=== PATIENT | male | born 1980 | race Caucasian/White ===

== ENCOUNTER 2016-05-29 09:27 | Emergency (ER) | payer MEDICAID ==
[2016-05-29 09:33] VITALS: RESP 16; TEMP 97.2
--- NOTE | 2016-05-29 09:43 | EDPHY ---
H & P Time Seen by Provider: 05/29/16 09:43 HPI/ROS: CHIEF COMPLAINT: Chest pain HISTORY OF PRESENT ILLNESS: This 35-year-old man is homeless and has been diagnosed with 3 previous pulmonary embolisms last 1 9 months ago in [facility]. He has been out of his Xarelto for at least 1 month and presents today with 1 day of right-sided chest pain which is mild to moderate and worse with movement or taking a deep breath. It does not radiate. It is not associated with cough or fever or chills or leg symptoms. No recent fall injury or trauma. REVIEW OF SYSTEMS: Eye: no change in vision ENT: no sore throat Cardiac: HPI Pulmonary: no cough or SOB Abdomen: no vomiting, diarrhea, abdominal pain Musculoskeletal: no back pain Skin: no rash Neuro: no headache Constitutional: no fever : no urinary symptoms A comprehensive 10 point review of systems is otherwise negative aside from elements mentioned in the history of present illness. PAST MEDICAL HISTORY: Pulmonary embolism as noted above. Nephrotic syndrome. Social history: Smoker, homeless, moved here from [place]. General Appearance: Alert and conversant, cooperative. Eyes: No scleral icterus. ENT, Mouth: Normal mucous membranes. Respiratory: Normal respiratory effort, breath sounds equal, lungs are clear to auscultation. Cardiovascular: Regular rate and rhythm. Gastrointestinal: Abdomen is soft and non tender. Neurological: Alert and oriented x3. Normally conversant. Face symmetric, normal movement and sensation in all extremities. Skin: Warm and dry, no rashes. Musculoskeletal: No peripheral edema and no joint swelling. Psychiatric: Not agitated. Emergency Department course/MDM: Plan for i-STAT, CT chest, case management to arrange ongoing anticoagulation and outpatient primary care follow-up. 1145: Results discussed in detail with the patient. Case management has set him up with oral Xarelto and primary care follow-up. Patient tells me he was told he needs to be on chronic lifelong anticoagulation. We discussed potential harm the including unintended bleeding, and potential benefit; and Xarelto was consented. Smoking Status: Current every day smoker Constitutional: Initial Vital Signs Temperature (C) 36.2 C 05/29/16 09:30 Heart Rate 84 05/29/16 09:30 Respiratory Rate 16 05/29/16 09:30 Blood Pressure 143/100 H 05/29/16 09:30 O2 Sat (%) 97 05/29/16 09:30 O2 Delivery Mode Room Air Allergies/Adverse Reactions: No Known Allergies Allergy (Unverified 05/29/16 09:28) Home Medications: Medication Instructions Recorded Adderall 10 MG (*) 05/29/16 Lasix 05/29/16 Lisinopril 05/29/16 Valium 05/29/16 Medical Decision Making - Diagnostics EKG Interpretation: 12-lead EKG interpreted by me; official reading is in trace master. My interpretation is [] sinus rhythm, no acute ischemic changes, normal. Rate 74. Imaging: CT angio chest negative per Isuani for PE or other abnl; reviewed personally. Differential Diagnosis: Differential diagnosis considered for chest pain including but not limited to myocardial ischemia, aortic dissection, pericarditis, pulmonary embolus, chest wall pain, pleural inflammation and pulmonary infectious causes. - Data Points Laboratory Results: Laboratory Results 05/29/16 09:45 05/29/16 09:45 05/29/16 05/29/16 09:46 09:45 WBC 12.62 H 10^3/uL (3.80-9.50) RBC 5.04 10^6/uL (4.40-6.38) Hgb 15.8 g/dL (13.7-17.5) POC Hgb 15.6 gm/dL (14.5-17.3) Hct 46.7 % (40.0-51.0) POC Hct 46 % (42.8-50.6) MCV 92.7 fL (81.5-99.8) MCH 31.3 pg (27.9-34.1) MCHC 33.8 g/dL (32.4-36.7) RDW 12.3 % (11.5-15.2) Plt Count 351 10^3/uL (150-400) MPV 9.7 fL (8.7-11.7) Neut % (Auto) Not Reported Lymph % (Auto) Not Reported [place] % (Auto) Not Reported Eos % (Auto) Not Reported Baso % (Auto) Not Reported Nucleat RBC Rel Count 0.0 % (0.0-0.2) Absolute Neuts (auto) Not Reported Absolute Lymphs (auto) Not Reported Absolute Monos (auto) Not Reported Absolute Eos (auto) Not Reported Absolute Basos (auto) Not Reported Absolute Nucleated RBC 0.00 10^3/uL (0-0.01) Immature Gran % Not Reported Seg Neutrophils % 55 % Band Neutrophils % 1 % Lymphocytes % 36 % Monocytes % 4 % Eosinophils % 4 % Immature Gran # Not Reported Absolute Seg Neuts 6.94 H 10^/uL (1.70-6.50) Absolute Band Neuts 0.13 10^3/uL (0.00-0.70) Absolute Lymphocytes 4.54 H 10^3/uL (1.00-3.00) Absolute Monocytes 0.50 10^3/uL (0.30-0.80) Absolute Eosinophils 0.50 H 10^3/uL (0.03-0.40) RBC/WBC/PLT Morphology NORMAL (NORMAL) Atypical Lymphocytes 1+ H Platelet Estimate ADEQUATE (ADEQ) POC Sodium 139 mEq/L (134-144) Sodium 136 mEq/L (134-144) POC Potassium 5.0 mEq/L (3.3-5.0) Potassium 5.3 H mEq/L (3.5-5.2) POC Chloride 105 mEq/L (96-108) Chloride 107 mEq/L (97-110) Carbon Dioxide 25 mEq/l (22-31) Anion Gap 4 mEq/L (8-16) POC BUN 33 H mg/dL (7-23) BUN 31 H mg/dL (7-23) Creatinine 1.1 mg/dL (0.7-1.3) POC Creatinine 1.1 mg/dL (0.8-1.5) Estimated GFR > 60 Glucose 89 mg/dL (70-100) POC Glucose 89 mg/dL (70-100) Calcium 8.7 mg/dL (8.5-10.4) Medications Given: Discontinued Medications Sodium Chloride (Ns) 1,000 mls @ 0 mls/hr IV ONCE ONE PRN Reason: Wide Open Stop: 05/29/16 09:55 Last Admin: 05/29/16 10:17 Dose: 1,000 mls Point of Care Test Results: 05/29/16 09:46 POC Sodium 139 POC Potassium 5.0 POC Chloride 105 POC BUN 33 H POC Creatinine 1.1 POC Glucose 89 Departure - Departure Disposition: Home, Routine, Self-Care Clinical Impression: Chest pain Qualifiers: Chest pain type: unspecified Qualifier Code: (R07.9) Chest pain, unspecified Condition: Good Instructions: Chest Pain (ED) Additional Instructions: Follow-up with [facility] at [address] ([phone]). Your scheduled appointment is at 2:40pm today. Please ensure you activate the Xarelto free 30-day trial that was provided to you. Call [phone]. After your card is activated, take the prescription and the card to a pharmacy of your choice to have it filled. Referrals: NONE *PRIMARY CARE P,. [Primary Care Provider] - As per Instructions [facility] [Outside] - As per Instructions
--- NOTE | 2016-05-29 09:45 | CPEKG ---
Heart Rate: 74 RR Interval: 811 P-R Interval: 156 QRSD Interval: 84 QT Interval: 364 QTC Interval: 404 P [place]: 61 QRS [place]: 14 T Wave [place]: 37 EKG Severity - NORMAL ECG - EKG Impression: SINUS RHYTHM Electronically Signed By: Dino Juarez 29-May-2016 09:59:47
[2016-05-29] MEDS ORDERED: NS 1,000 ML IV ONE (09:54)
[2016-05-29 10:03] LABS: ADD DIFF? YES; ADD MORPH? NO; ADD SCAN? NO; ATYPICAL LYMPHOCYTE FLAG 30 (0-99); FRAGMENT RBC FLAG 0 (0-99); HEMATOCRIT 46.7 % (40.0-51.0); HEMOGLOBIN 15.8 g/dL (13.7-17.5); LEFT SHIFT FLG 60 (0-99); LIPEMIA HEMOLYSIS FLAG 90 (0-99); MEAN CELL HEMOGLOBIN 31.3 pg (27.9-34.1); MEAN CELL HEMOGLOBIN CONCENTR. 33.8 g/dL (32.4-36.7); MEAN CELL VOLUME 92.7 fL (81.5-99.8); MEAN PLATELET VOLUME 9.7 fL (8.7-11.7); PLATELET CLUMPS FLAG 10 (0-99); PLATELET COUNT 351 10^3/uL (150-400); RED BLOOD CELL COUNT 5.04 10^6/uL (4.40-6.38); RED CELL DISTRIBUTION WIDTH 12.3 % (11.5-15.2)
[2016-05-29] MEDS ORDERED: IOPAMIDOL (ISOVUE 370) 100 ML BTL IV ONE (10:07)
[2016-05-29 10:17] LABS: ANION GAP 4 mEq/L (8-16); CALCIUM 8.7 mg/dL (8.5-10.4); CARBON DIOXIDE 25 mEq/l (22-31); CHLORIDE 107 mEq/L (97-110); CREATININE 1.1 mg/dL (0.7-1.3); GLOMERULAR FILTRATION RATE > 60; GLUCOSE 89 mg/dL (70-100); POTASSIUM 5.3 mEq/L (3.5-5.2); SODIUM 136 mEq/L (134-144)
[2016-05-29 10:41] LABS: PLATELET ESTIMATE ADEQUATE (ADEQ)
--- NOTE | 2016-05-29 11:03 | CT ---
CT Chest Pulmonary Angiogram With Contrast Enhancement and Multiplanar Reconstructions at 1018 hours History: Right-sided chest pain, previous pulmonary emboli. COMPARISON: None. Technique: 1.25 mm axial multidetector helical CT angiogram imaging was performed through the chest w hile 90 mL Isovue-370 were injected intravenously without complication. The images were then transfe rred to an independent workstation where multiplanar and three-dimensional reconstructions were perfo rmed by the interpreting physician and reviewed at multiple windows. Dose reduction techniques were u tilized. CT Pulmonary Angiogram Findings: No CT evidence of definite pulmonary thromboemboli. No evidence of aortic dissection. Heart is normal in size. CT Chest Findings: No pneumonia, pleural effusion or pneumothorax. Linear scarring in the right lower lobe. No suspicious nodules or significant adenopathy. No destructive osseous lesions. Impression: 1. No definite pulmonary thromboemboli. 2. Linear scar in the right lower lobe. 3. No acute pulmonary disease. 4. No aortic dissection. Findings and recommendations discussed with Emergency Department physician, Dr. Dino Juarez at [address], today. Final report concurs with initial preliminary interpretation.
[2016-05-29 13:09] VITALS: BP 146/97; PULSE 79; O2SAT 95
== END 2016-05-29 13:07 | disposition home or self-care (01) ==
DX: R07.9 Chest pain, unspecified (principal); F17.200 Nicotine dependence, unspecified, uncomplicated
CPT/HCPCS: 82947-QW; Q9967

== ENCOUNTER 2016-07-16 16:01 | Emergency (ER) | payer MEDICAID ==
[2016-07-16 16:07] VITALS: BP 151/83; PULSE 98; RESP 17; TEMP 98.2; O2SAT 96
--- NOTE | 2016-07-16 17:18 | EDPHY ---
H & P Time Seen by Provider: 07/16/16 17:02 HPI/ROS: CHIEF COMPLAINT: right great toe pain HISTORY OF PRESENT ILLNESS: 35-year-old male presents emergency department complaining of right great toe pain for the past few days. Patient denies trauma. No fevers or chills, no numbness or tingling to this toe, no other complaints. Tetanus is up-to-date. Smoking Status: Current every day smoker Physical Exam: GEN: Awake, alert, oriented, no acute distress RESP: nl resp effort MSK: Right great toe with no tenderness at MTP joint, no erythema, patient paronychia to medial toenail tenderness to skin around the nail and tip of toe. No break in skin, sensation intact to light touch, cap refill less than 2 seconds Constitutional: Initial Vital Signs Temperature (C) 36.8 C 07/16/16 16:05 Heart Rate 98 07/16/16 16:05 Respiratory Rate 17 07/16/16 16:05 Blood Pressure 151/83 H 07/16/16 16:05 O2 Sat (%) 96 07/16/16 16:05 Allergies/Adverse Reactions: No Known Allergies Allergy (Unverified 05/29/16 09:28) Home Medications: Medication Instructions Recorded Adderall 10 MG (*) 05/29/16 Lasix 05/29/16 Lisinopril 05/29/16 Valium 05/29/16 MDM/Departure - MDM Procedures: Procedure: Incision and Drainage paronychia. The patient's abscess was located on the right great toe. Risks, benefits, alternatives discussed with the patient and consent obtained. The toe was anesthetized with a digital block using 5 mL of 0.5% bupivacaine mixed with 1% lidocaine without epinephrine. The area was prepped and draped in sterile fashion. The abscess was incised with a #11 blade and purulent drainage was expressed. The patient tolerated the procedure well. The procedure was performed by myself. - Depart Disposition: Home, Routine, Self-Care Clinical Impression: Paronychia of great toe, right Condition: Good Instructions: Paronychia (ED) Additional Instructions: Soak your foot in warm water 5 times a day for 10 minutes. Elevate. Take 600 mg of ibuprofen every 8 hours with food for 3-5 days. Follow-up with your primary care doctor for symptoms that are not improving, return to the emergency department for worsening symptoms, fevers, any other questions or concerns. Referrals: ABDOULAYE OSWALD [Other] - As per Instructions
== END 2016-07-16 18:23 | disposition home or self-care (01) ==
PROC: 0H9MXZZ Drainage of Right Foot Skin, External Approach (ICD-10-PCS; principal; 2016-07-16)
DX: L03.031 Cellulitis of right toe (principal); F17.200 Nicotine dependence, unspecified, uncomplicated

== ENCOUNTER 2017-01-04 09:15 | Emergency (ER) | payer MEDICAID ==
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
[2017-01-04] MEDS ORDERED: HYDROmorphONE/DILAUDID 1 MG/ML SYR IVP ONE (09:23)
[2017-01-04] MEDS ORDERED: ONDANSETRON 4 MG/2 ML VIAL IVP ONE (09:23)
[2017-01-04] MEDS ORDERED: LIDOCAINE 2% JELLY 20 ML (UROJECT) UR ONE (10:51)
[2017-01-04] MEDS ORDERED: LIDOCAINE 2% JELLY 20 ML (UROJECT) ONE (10:52)
[2017-01-04 11:37] VITALS: BP 139/80; PULSE 85; RESP 16; TEMP 97.5; O2SAT 95
== END 2017-01-04 11:37 | disposition home or self-care (01) ==
LOC: EDUNIT#
DX: S20.311A Abrasion of right front wall of thorax, initial encounter (principal); S30.811A Abrasion of abdominal wall, initial encounter; S30.810A Abrasion of lower back and pelvis, initial encounter; V13.9XXA Unspecified pedal cyclist injured in collision with car, pick-up truck or van in traffic accident, initial encounter; Y92.410 Unspecified street and highway as the place of occurrence of the external cause
CPT/HCPCS: 82947-QW; 96374; J1170; J2405; L3908

== ENCOUNTER 2017-01-30 00:36 | Emergency (ER) | payer MEDICAID ==
[2017-01-30] MEDS ORDERED: NS 1,000 ML IV ONE ×2 (00:38→01:31)
--- NOTE | 2017-01-30 00:41 | EDPHY ---
H & P HPI/ROS: HPI CHIEF COMPLAINT: Intoxication, additionally drank a bottle of Robitussin which has Tylenol in it. He states he drank this 3 hours ago HISTORY OF PRESENT ILLNESS: This patient 36-year-old male, he is homeless, he presents emergency room by EMS after was found [place] the [place] unable to walk. Appeared intoxicated. States that he drank alcohol this evening. Additionally he states that he drank an entire bottle of Robitussin. He denies any other comma ingestions. He does take Valium he states for anxiety and attention deficit hyperactivity disorder medicine Adderall. Upon arrival to the emergency room the patient is somnolent. Intoxicated. Denies any complaints. Past Medical History: Anxiety, attention deficit hyperactivity disorder Past Surgical History: No recent surgery Social History: Alcohol use, homeless Family History: Noncontributory ROS REVIEW OF SYSTEMS: Limited due to patient's mental state. Intoxication. Exam Constitutional triage nursing summary reviewed, vital signs reviewed, awake/ alert. Eyes normal conjunctivae and sclera, EOMI, PERRLA. HENT normal inspection, atraumatic, moist mucus membranes, no epistaxis, neck supple/ no meningismus, no raccoon eyes. Respiratory clear to auscultation bilaterally, normal breath sounds, no respiratory distress, no wheezing. Cardiovascular rate normal, regular rhythm, no murmur, no edema, distal pulses normal. Gastrointestinal soft, non-tender, no rebound, no guarding, normal bowel sounds, no distension, no pulsatile mass. Genitourinary no CVA tenderness. Musculoskeletal no midline vertebral tenderness, full range of motion, no calf swelling, no tenderness of extremities, no meningismus, good pulses, neurovascularly intact. Skin pink, warm, & dry, no rash, skin atraumatic. Neurologic somnolent, intoxicated, smells of alcohol, horizontal beating nystagmus, ataxic gait Psychiatric normal mood/affect. Heme/Lymph/Immune no lymphadenopathy. Differential Diagnosis: Includes but is not limited to in a particular order acute alcohol intoxication, dehydration, electrolyte disturbance, Tylenol overdose, polysubstance abuse Medical Decision Making: Plan for this patient IV establishment with blood draw , poison Control consult, check salicylate and acetaminophen level, alcohol level. Gentle IV hydration. Re-evaluation: EKG interpretation by me on record in [employer] system. Impression time of EKG 1:12 a.m., sinus rhythm rate of 75 no prolonged intervals. No acute ischemia. Unremarkable EKG. 0552AM: This patient repeat see midlevel unremarkable. Patient ambulated well to the bathroom without difficulty. Drug screen positive for multiple drugs. He is agreeable discharge. Is not appear acutely intoxicated this time., cooperative. Not psychotic. Ambulatory with a stable gait. Source: Patient, EMS - Personal History Tetanus Vaccine Date: 2015 - Medical/Surgical History Hx Asthma: No Hx Chronic Respiratory Disease: No Hx Diabetes: No Hx Cardiac Disease: No Hx Renal Disease: Yes Hx Cirrhosis: No Hx Alcoholism: No Hx HIV/AIDS: No Hx Splenectomy or Spleen Trauma: No Other PMH: nephrotic syndrome, anxiety and pulmonary embolism with DVT years ago. Pt currently on BASA. - Social History Smoking Status: Current every day smoker Constitutional: Initial Vital Signs Temperature (C) 36.8 C 01/30/17 00:44 Heart Rate 79 01/30/17 00:44 Respiratory Rate 18 01/30/17 00:44 Blood Pressure 133/81 H 01/30/17 00:44 O2 Sat (%) 95 01/30/17 00:44 O2 Delivery Mode Room Air Allergies/Adverse Reactions: No Known Allergies Allergy (Unverified 05/29/16 09:28) Home Medications: Medication Instructions Recorded Adderall 10 MG (*) 05/29/16 Lasix 05/29/16 Lisinopril 05/29/16 Valium 05/29/16 Medical Decision Making - Data Points Laboratory Results: Laboratory Results 01/30/17 00:40 01/30/17 00:40 01/30/17 01/30/17 01/30/17 05:05 05:03 00:40 WBC RBC Hgb Hct MCV MCH MCHC RDW Plt Count MPV Neut % (Auto) Lymph % (Auto) [place] % (Auto) Eos % (Auto) Baso % (Auto) Nucleat RBC Rel Count Absolute Neuts (auto) Absolute Lymphs (auto) Absolute Monos (auto) Absolute Eos (auto) Absolute Basos (auto) Absolute Nucleated RBC Immature Gran % Immature Gran # Sodium Potassium Chloride Carbon Dioxide Anion Gap BUN Creatinine Estimated GFR Glucose Calcium Total Bilirubin 0.4 mg/dL mg/dL (0.1-1.4) Conjugated Bilirubin 0.3 mg/dL mg/dL (0.0-0.5) Unconjugated Bilirubin 0.1 mg/dL mg/dL (0.0-1.1) AST 34 IU/L IU/L (17-59) ALT 40 IU/L IU/L (21-72) Alkaline Phosphatase 76 IU/L IU/L (38-126) Total Protein 5.6 g/dL L g/dL (6.3-8.2) Albumin 3.2 g/dL L g/dL (3.5-5.0) Salicylates Urine Opiates Screen NEGATIVE (NEGATIVE) Acetaminophen < 10 mcg/mL L mcg/mL (10-30) Urine Barbiturates NEGATIVE (NEGATIVE) Ur Phencyclidine Scrn NEGATIVE (NEGATIVE) Ur Amphetamine Screen NON-NEGATIVE H (NEGATIVE) U Benzodiazepines Scrn NON-NEGATIVE H (NEGATIVE) Urine Cocaine Screen NON-NEGATIVE H (NEGATIVE) U Marijuana (THC) Screen NON-NEGATIVE H (NEGATIVE) Ethyl Alcohol 01/30/17 01/30/17 00:40 00:40 WBC 6.56 10^3/uL 10^3/uL (3.80-9.50) RBC 4.08 10^6/uL L 10^6/uL (4.40-6.38) Hgb 12.7 g/dL L g/dL (13.7-17.5) Hct 38.5 % L % (40.0-51.0) MCV 94.4 fL fL (81.5-99.8) MCH 31.1 pg pg (27.9-34.1) MCHC 33.0 g/dL g/dL (32.4-36.7) RDW 12.5 % % (11.5-15.2) Plt Count 236 10^3/uL 10^3/uL (150-400) MPV 9.8 fL fL (8.7-11.7) Neut % (Auto) 39.6 % % (39.3-74.2) Lymph % (Auto) 45.7 % H % (15.0-45.0) [place] % (Auto) 9.0 % % (4.5-13.0) Eos % (Auto) 3.7 % % (0.6-7.6) Baso % (Auto) 0.9 % % (0.3-1.7) Nucleat RBC Rel Count 0.0 % % (0.0-0.2) Absolute Neuts (auto) 2.60 10^3/uL 10^3/uL (1.70-6.50) Absolute Lymphs (auto) 3.00 10^3/uL 10^3/uL (1.00-3.00) Absolute Monos (auto) 0.59 10^3/uL 10^3/uL (0.30-0.80) Absolute Eos (auto) 0.24 10^3/uL 10^3/uL (0.03-0.40) Absolute Basos (auto) 0.06 10^3/uL 10^3/uL (0.02-0.10) Absolute Nucleated RBC 0.00 10^3/uL 10^3/uL (0-0.01) Immature Gran % 1.1 % % (0.0-1.1) Immature Gran # 0.07 10^3/uL 10^3/uL (0.00-0.10) Sodium 142 mEq/L mEq/L (134-144) Potassium 4.6 mEq/L mEq/L (3.5-5.2) Chloride 111 mEq/L H mEq/L (97-110) Carbon Dioxide 24 mEq/l mEq/l (22-31) Anion Gap 7 mEq/L L mEq/L (8-16) BUN 36 mg/dL H mg/dL (7-23) Creatinine 1.2 mg/dL mg/dL (0.7-1.3) Estimated GFR > 60 Glucose 96 mg/dL mg/dL (70-100) Calcium 9.1 mg/dL mg/dL (8.5-10.4) Total Bilirubin Cancelled Conjugated Bilirubin Cancelled Unconjugated Bilirubin Cancelled AST Cancelled ALT Cancelled Alkaline Phosphatase Cancelled Total Protein Cancelled Albumin Cancelled Salicylates < 1.0 mg/dL L mg/dL (2.0-20.0) Urine Opiates Screen Acetaminophen < 10 mcg/mL L mcg/mL (10-30) Urine Barbiturates Ur Phencyclidine Scrn Ur Amphetamine Screen U Benzodiazepines Scrn Urine Cocaine Screen U Marijuana (THC) Screen Ethyl Alcohol < 10 mg/dL mg/dL (0-10) Medications Given: Discontinued Medications Sodium Chloride (Ns) 1,000 mls @ 0 mls/hr IV ONCE ONE PRN Reason: Wide Open Stop: 01/30/17 00:39 Last Admin: 01/30/17 00:49 Dose: 1,000 mls Sodium Chloride (Ns) 1,000 mls @ 0 mls/hr IV ONCE ONE PRN Reason: Wide Open Stop: 01/30/17 01:32 Last Admin: 01/30/17 01:43 Dose: 1,000 mls Departure - Departure Disposition: Home, Routine, Self-Care Clinical Impression: Polysubstance abuse Condition: Good Instructions: Polysubstance Abuse (ED) Referrals: NONE *PRIMARY CARE P,. [Primary Care Provider] - As per Instructions
[2017-01-30 00:46] VITALS: TEMP 98.2
[2017-01-30 00:58] LABS: % IMMATURE GRANULYOCYTES 1.1 % (0.0-1.1); ABSOLUTE IMMATURE GRANULOCYTES 0.07 10^3/uL (0.00-0.10); ADD DIFF? NO; ADD MORPH? NO; ADD SCAN? NO; ATYPICAL LYMPHOCYTE FLAG 40 (0-99); FRAGMENT RBC FLAG 0 (0-99); HEMATOCRIT 38.5 % (40.0-51.0); HEMOGLOBIN 12.7 g/dL (13.7-17.5); LEFT SHIFT FLG 10 (0-99); LIPEMIA HEMOLYSIS FLAG 80 (0-99); MEAN CELL HEMOGLOBIN 31.1 pg (27.9-34.1); MEAN CELL VOLUME 94.4 fL (81.5-99.8); MEAN PLATELET VOLUME 9.8 fL (8.7-11.7); PLATELET CLUMPS FLAG 0 (0-99); PLATELET COUNT 236 10^3/uL (150-400); RED BLOOD CELL COUNT 4.08 10^6/uL (4.40-6.38); RED CELL DISTRIBUTION WIDTH 12.5 % (11.5-15.2)
[2017-01-30 01:04] LABS: ANION GAP 7 mEq/L (8-16); CALCIUM 9.1 mg/dL (8.5-10.4); CARBON DIOXIDE 24 mEq/l (22-31); CHLORIDE 111 mEq/L (97-110); CREATININE 1.2 mg/dL (0.7-1.3); ETHANOL SERUM < 10 mg/dL (0-10); GLOMERULAR FILTRATION RATE > 60; GLUCOSE 96 mg/dL (70-100); POTASSIUM 4.6 mEq/L (3.5-5.2); SALICYLATE < 1.0 mg/dL (2.0-20.0); SODIUM 142 mEq/L (134-144)
--- NOTE | 2017-01-30 01:14 | CPEKG ---
Heart Rate: 75 RR Interval: 800 P-R Interval: 188 QRSD Interval: 98 QT Interval: 416 QTC Interval: 465 P [place]: 74 QRS [place]: 36 T Wave [place]: 36 EKG Severity - NORMAL ECG - EKG Impression: SINUS RHYTHM Electronically Signed By: Bull Block 30-Jan-2017 07:35:46
[2017-01-30 01:43] LABS: ALBUMIN 3.2 g/dL (3.5-5.0); BILIRUBIN,TOTAL 0.4 mg/dL (0.1-1.4); BILIRUBIN-CONJUGATED 0.3 mg/dL (0.0-0.5); BILIRUBIN-UNCONJUGATED 0.1 mg/dL (0.0-1.1); TOTAL PROTEIN 5.6 g/dL (6.3-8.2)
[2017-01-30 04:59] VITALS: RESP 16
[2017-01-30 06:08] VITALS: BP 109/74; PULSE 69; O2SAT 100
--- NOTE | 2017-01-30 09:23 | CPEKG ---
Heart Rate: 67 RR Interval: 896 P-R Interval: 184 QRSD Interval: 102 QT Interval: 420 QTC Interval: 444 P [place]: 72 QRS [place]: 41 T Wave [place]: 31 EKG Severity - NORMAL ECG - EKG Impression: SINUS RHYTHM Electronically Signed By: Korina Hernandez 30-Jan-2017 20:06:38
== END 2017-01-30 06:08 | disposition home or self-care (01) ==
LOC: EDBD → EDUNIT#
DX: F19.10 Other psychoactive substance abuse, uncomplicated (principal); F17.200 Nicotine dependence, unspecified, uncomplicated
CPT/HCPCS: 80305; G0480

== ENCOUNTER 2017-03-20 15:56 | Emergency (ER) | payer MEDICAID ==
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
[2017-03-20 16:05] VITALS: TEMP 97.5
[2017-03-20] MEDS ORDERED: IBUPROFEN 600 MG TAB PO ONE (16:12)
[2017-03-20] MEDS ORDERED: HYDROCODONE/APAP 5/325 TAB PO ONE (16:17)
[2017-03-20] MEDS ORDERED: oxyCODONE IR 5 MG TAB PO ONE (17:06)
[2017-03-20] MEDS ORDERED: OXYCODONE/APAP 5/325MG PREPACK#4 BTL TAKEHOME ONE (17:33)
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
[2017-03-20 18:00] VITALS: BP 148/87; PULSE 84; RESP 16; O2SAT 97
== END 2017-03-20 18:00 | disposition home or self-care (01) ==
LOC: EDUNIT#
DX: S93.491A Sprain of other ligament of right ankle, initial encounter (principal); S82.891A Other fracture of right lower leg, initial encounter for closed fracture; X58.XXXA Exposure to other specified factors, initial encounter; Y99.8 Other external cause status; Y93.89 Activity, other specified
CPT/HCPCS: L4386

== ENCOUNTER 2018-02-08 05:11 | Emergency (ER) | payer MEDICAID ==
[2018-02-08] MEDS ORDERED: NS 1,000 ML IV ONE ×2 (05:23→06:12)
--- NOTE | 2018-02-08 05:25 | EDPHY ---
H & P Time Seen by Provider: 02/08/18 05:24 HPI/ROS: HPI CHIEF COMPLAINT: Joint pain. Pain all over. HISTORY OF PRESENT ILLNESS: 37-year-old male presents emergency room by EMS from the bus stop. Patient states he resides in [place] was visiting a friend here in [place]. Was due to take the early bus back to [place]. However he states for the past 4-5 hours he has had pain in his bilateral feet, ankles, right wrist, right elbow and left elbow. Patient states he has pain in multiple joint areas. No fever. Patient states he has a history of gout. Also he states that sometimes he retains fluid when he eats too much salt so he intermittently takes Lasix. Additionally patient reports he took 2 Lasix tab today. Additionally also reports he smoked methamphetamine over the last 24-48 hours. Of note the patient did receive 100 mcg IV fentanyl. Patient denies any chest pain or shortness of breath or pleuritic pain this evening. No fever. No vomiting. Main complaint is multiple joint pain. Past Medical History: Past medical history significant for methamphetamine abuse, gout, kidney failure, hypertension, unsure the cause of his kidney failure in the past, additionally has a history of PE 2015. Unsure of the cause. No products syndrome. Attention deficit hyperactivity disorder and anxiety. Past Surgical History: No significant surgery. Social History: Methamphetamine use, history of alcohol abuse. History of homelessness. States he lives in apartment in [place]. Family History: Noncontributory ROS REVIEW OF SYSTEMS: 10 Systems were reviewed and negative with the exception of the elements mentioned in the history of present illness. Exam Constitutional triage nursing summary reviewed, vital signs reviewed, awake/ alert. Eyes normal conjunctivae and sclera, EOMI, PERRLA. HENT normal inspection, atraumatic, moist mucus membranes, no epistaxis, neck supple/ no meningismus, no raccoon eyes. Respiratory clear to auscultation bilaterally, normal breath sounds, no respiratory distress, no wheezing. Cardiovascular rate normal, regular rhythm, no murmur, no edema, distal pulses normal. Gastrointestinal soft, non-tender, no rebound, no guarding, normal bowel sounds, no distension, no pulsatile mass. Genitourinary no CVA tenderness. Musculoskeletal I evaluated all his joints including wrists, elbows, ankles and feet. There does appear to be some tophi over both elbows consistent with gout or possible gout. However no evidence signs of inflammation or redness or infection. Full range of motion of all his joints. His limbs are neurovascular intact good distal pulses, good cap refill, warm extremities without any rash. No significant swelling noted. no midline vertebral tenderness, full range of motion, no calf swelling, no tenderness of extremities, no meningismus, good pulses, neurovascularly intact. Skin pink, warm, & dry, no rash, skin atraumatic. Neurologic awake, alert and oriented x 3, AAOx3, moves all 4 extremities equally, motor intact, sensory intact, CN II-XII intact, normal cerebellar, normal vision, normal speech. Psychiatric normal mood/affect. Heme/Lymph/Immune no lymphadenopathy. Differential Diagnosis: Includes but is not limited to in a particular order gout, methamphetamine abuse, electrolyte disturbance from taking Lasix, arthralgia polyarthralgia process, no evidence of septic joint on exam. Medical Decision Making: Plan for this patient will obtain basic blood work, check CK, drug screen, electrolytes. Will gently hydrate him. Does feel better after 100 mcg IV fentanyl given by EMS. Will check basic blood work including kidney function. Will re-evaluate. Here in emergency room this patient appears well nontoxic has stable vital signs. No active infection visible on exam. Has multiple joints with pain. Possibly due to methamphetamine abuse and dehydration or possible due to electrolyte disturbance or possible due to gout. Re-evaluation: 0649: Patient re-evaluated. I have declined to give him any narcotics. He has asked repeatedly for narcotics here in the emergency room. Additionally I cannot give him any Toradol or high-dose NSAIDs due to his elevated creatinine. He has received 2 L of fluid here. His creatinine is 1.6. I do recommend he drinks lots of fluids and stays well hydrated and follows up with his primary care doctor to get his repeat creatinine. Additionally he has been doing methamphetamine. I do recommend he refrain from doing methamphetamine as this may be contributing to his presentation today. you should stay well-hydrated. Refrain from drug use. Source: Patient, EMS - Personal History Tetanus Vaccine Date: 2015 - Medical/Surgical History Hx Asthma: No Hx Chronic Respiratory Disease: No Hx Diabetes: No Hx Cardiac Disease: No Hx Renal Disease: Yes Hx Cirrhosis: No Hx Alcoholism: No Hx HIV/AIDS: No Hx Splenectomy or Spleen Trauma: No Other PMH: nephrotic syndrome, anxiety and pulmonary embolism with DVT years ago. Pt currently on BASA. - Social History Smoking Status: Current every day smoker Constitutional: Initial Vital Signs Temperature (C) 36.4 C 02/08/18 05:42 Heart Rate 79 02/08/18 05:42 Respiratory Rate 18 02/08/18 05:42 Blood Pressure 142/100 H 02/08/18 05:42 O2 Sat (%) 100 02/08/18 05:42 O2 Delivery Mode Room Air Allergies/Adverse Reactions: No Known Allergies Allergy (Unverified 05/29/16 09:28) Home Medications: Medication Instructions Recorded Adderall 10 MG (*) 05/29/16 Lasix 05/29/16 Lisinopril 05/29/16 Valium 05/29/16 Medical Decision Making - Data Points Laboratory Results: Laboratory Results 02/08/18 05:30 02/08/18 05:30 02/08/18 02/08/18 05:30 05:30 WBC 11.67 10^3/uL H 10^3/uL (3.80-9.50) RBC 4.20 10^6/uL L 10^6/uL (4.40-6.38) Hgb 12.8 g/dL L g/dL (13.7-17.5) Hct 37.3 % L % (40.0-51.0) MCV 88.8 fL fL (81.5-99.8) MCH 30.5 pg pg (27.9-34.1) MCHC 34.3 g/dL g/dL (32.4-36.7) RDW 12.1 % % (11.5-15.2) Plt Count 253 10^3/uL 10^3/uL (150-400) MPV 10.2 fL fL (8.7-11.7) Neut % (Auto) 77.7 % H % (39.3-74.2) Lymph % (Auto) 14.9 % L % (15.0-45.0) [place] % (Auto) 4.5 % % (4.5-13.0) Eos % (Auto) 2.3 % % (0.6-7.6) Baso % (Auto) 0.3 % % (0.3-1.7) Nucleat RBC Rel Count 0.0 % % (0.0-0.2) Absolute Neuts (auto) 9.06 10^3/uL H 10^3/uL (1.70-6.50) Absolute Lymphs (auto) 1.74 10^3/uL 10^3/uL (1.00-3.00) Absolute Monos (auto) 0.53 10^3/uL 10^3/uL (0.30-0.80) Absolute Eos (auto) 0.27 10^3/uL 10^3/uL (0.03-0.40) Absolute Basos (auto) 0.04 10^3/uL 10^3/uL (0.02-0.10) Absolute Nucleated RBC 0.00 10^3/uL 10^3/uL (0-0.01) Immature Gran % 0.3 % % (0.0-1.1) Immature Gran # 0.03 10^3/uL 10^3/uL (0.00-0.10) Sodium 140 mEq/L mEq/L (135-145) Potassium 4.1 mEq/L mEq/L (3.3-5.0) Chloride 108 mEq/L mEq/L (97-110) Carbon Dioxide 23 mEq/l mEq/l (22-31) Anion Gap 9 mEq/L mEq/L (8-16) BUN 35 mg/dL H mg/dL (7-23) Creatinine 1.6 mg/dL H mg/dL (0.7-1.3) Estimated GFR 49 Glucose 132 mg/dL H mg/dL (70-100) Calcium 8.9 mg/dL mg/dL (8.5-10.4) Total Bilirubin 0.1 mg/dL mg/dL (0.1-1.4) Conjugated Bilirubin 0.0 mg/dL mg/dL (0.0-0.5) Unconjugated Bilirubin 0.1 mg/dL mg/dL (0.0-1.1) AST 25 IU/L IU/L (17-59) ALT 33 IU/L IU/L (21-72) Alkaline Phosphatase 67 IU/L IU/L (38-126) Creatine Kinase 169 IU/L IU/L (0-224) Total Protein 5.4 g/dL L g/dL (6.3-8.2) Albumin 3.1 g/dL L g/dL (3.5-5.0) Medications Given: Discontinued Medications Sodium Chloride (Ns) 1,000 mls @ 0 mls/hr IV EDNOW ONE; Wide Open PRN Reason: Protocol Stop: 02/08/18 05:24 Last Admin: 02/08/18 05:51 Dose: 1,000 mls Sodium Chloride (Ns) 1,000 mls @ 0 mls/hr IV ONCE ONE PRN Reason: [place] Stop: 02/08/18 06:13 Last Admin: 02/08/18 06:16 Dose: 1,000 mls Departure - Departure Disposition: Home, Routine, Self-Care Clinical Impression: Dehydration Condition: Good Instructions: Dehydration (ED) Additional Instructions: 1. Stay well-hydrated drink lots of fluids. 2. Refrain from methamphetamine use. 3. Follow up with your primary care doctor Referrals: NONE *PRIMARY CARE P,. [Primary Care Provider] - As per Instructions
[2018-02-08 05:39] LABS: PLATELET COUNT 253 10^3/uL (150-400)
[2018-02-08 05:45] VITALS: BP 142/100
[2018-02-08 05:51] LABS: CREATINE KINASE 169 IU/L (0-224)
== END 2018-02-08 07:05 | disposition home or self-care (01) ==
LOC: EDUNIT#
DX: E86.0 Dehydration (principal); M10.9 Gout, unspecified; F15.90 Other stimulant use, unspecified, uncomplicated; I10 Essential (primary) hypertension; Z86.711 Personal history of pulmonary embolism